=== PATIENT | female | born 1970 | race Caucasian/White ===

== ENCOUNTER 2022-09-30 10:30 | Emergency (ER) | payer OTHER, SELFPAY ==
[2022-09-30 10:35] VITALS: BP 137/95; PULSE 99; RESP 18; TEMP 36.9; O2SAT 100; BMI 32.9
--- NOTE | 2022-09-30 10:42 | ED.LOWEXI1 ---
HPI - Extremity Injury (Lower) General Chief Complaint: Extremity Injury, Lower Stated Complaint: LOWER EXTREMITY PAIN LEFT HIP Time Seen by Provider: 09/30/22 10:42 Source: patient and family Mode of arrival: walk-in Limitations: no limitations History of Present Illness HPI Narrative: Patient presents to emergency department complaining of left hip pain. Patient states she's had intermittent left hip pain for months. Patient states she injured her left hip in March. She saw Dr. Hyde in July. She's had x-rays done and did physical therapy for several months. On Monday she had an MRI done. She is here because the pain is getting worse since yesterday. She took Motrin 800 at 6 AM has not had any relief. She denies any paresthesias, or weakness. She is is having trouble when she sits on the toilet when she tries to get up. She has not seen the orthopedic surgeon regarding the results by the states that she is being treated as such she has a labrum tear. Patient is here mostly for pain control. She has an appointment with her doctor . She denies any urinary, bowel incontinence, retention. She denies any back pain. She denies any fever, chills, or swelling. Related Data Previous Rx's Medication Instructions Recorded hydrocodone 5 mg-acetaminophen 325 1 tab PO Q6H PRN pain 5 days #20 09/30/22 mg tablet tabs Allergies Allergy/AdvReac Type Severity Reaction Status Date / Time No Known Drug Allergies Allergy Verified 09/30/22 10:35 Review of Systems ROS Status of ROS 10 or more systems reviewed and unremarkable except as noted in history and below [facility] Social History Smoking status: Never smoker Exam Narrative Exam Narrative: Nurses notes and vital signs reviewed and patient is not hypoxic. General: Nontoxic, Well-appearing and in no apparent distress. Skin: Warm, dry, no pallor noted. No Rash Head: Normocephalic, atraumatic. Neck: Supple, non-tender. Eye: Pupils are equal, round and EOMI. No scleral icterus. Ears, Nose, Mouth, and Throat: TM clear, no posterior oropharynx erythema or nasal mucosal hypertrophy, uvula is mid-line Oral mucosa is moist Cardiovascular: Regular Rate and Rhythm without murmur, gallop or rub. Respiratory: No accessory muscle use or respiratory distress. Lungs are clear to auscultation, no wheezing, rales or rhonchi Chest Wall: no tenderness Back: No midline thoracic or lumbar vertebral tenderness. No CVA tenderness Musculoskeletal: normal ROM, no calf or popliteal tenderness, no lower extremity edema/swelling GI: Abdomen is soft, non-distended. Normal bowel sounds. No masses appreciated. No tenderness to palpation. No rebound, guarding, or rigidity noted. Neurological: A&O x4. No cranial nerve dysfunction observed. No truncal ataxia. Moves all extremities. Sensation intact. Psychiatric: Cooperative and interactive. Normal mood and affect. Constitutional Vital Signs, click to edit/add: Last Vital Signs Temp 98.5 F 09/30/22 10:35 Pulse 99 H 09/30/22 10:35 Resp 18 09/30/22 10:35 BP 137/95 H 09/30/22 10:35 Pulse Ox 100 09/30/22 10:35 O2 Del Method Room Air 09/30/22 10:35 Course Vital Signs Vital signs: Vital Signs Temperature 98.5 F 09/30/22 10:35 Pulse Rate 99 H 09/30/22 10:35 Respiratory Rate 18 09/30/22 10:35 Blood Pressure 137/95 H 09/30/22 10:35 Pulse Oximetry 100 09/30/22 10:35 Oxygen Delivery Method Room Air 09/30/22 10:35 Temperature 98.5 F 09/30/22 10:35 Pulse Rate 99 H 09/30/22 10:35 Respiratory Rate 18 09/30/22 10:35 Blood Pressure 137/95 H 09/30/22 10:35 Pulse Oximetry 100 09/30/22 10:35 Oxygen Delivery Method Room Air 09/30/22 10:35 MDM - Extremity Injury (Lower) MDM Narrative Medical decision making narrative: Patient was given one tablet of [place] by mouth in the emergency department. This helped her symptoms. Patient is advised follow-up with primary care doctor and orthopedist. At this time the patient is without objective evidence of an acute process requiring hospitalization or inpatient management. The patient has remained hemodynamically stable. No additional indication for emergent studies at this time. I answered all questions. Discussed discharge instructions including standard anticipatory guidance and what should prompt a return to the emergency department, including if they get worse are not getting better or develops any new or concerning symptoms. I've given them specific time frame in which to follow-up, and who to follow-up with. The patient demonstrates understanding. Patient is nontoxic and stable for discharge with outpatient follow-up. This note was created with the assistance of a speech recognition program. Although the intention is to generate documents that actually reflects the content of the visit, no guarantees can be provided that every mistake has been identified and corrected by editing. Discharge Plan Discharge Chief Complaint: Extremity Injury, Lower Clinical Impression: Arthralgia of left hip Patient Disposition: Home, Self-Care Time of Disposition Decision: 11:04 Condition: Good Mode of Transportation: Private Vehicle Prescriptions / Home Meds: New hydrocodone-acetaminophen 5-325 mg tablet 1 tab PO Q6H PRN (Reason: pain) 5 Days Qty: 20 0RF Instructions: Hip Pain (ED) Stand Alone Forms: Portal Instructions Referrals: Physician,Non-Staff, MD [Physician] - 1 week Discharge Date/Time: 09/30/22 11:22
== END 2022-09-30 11:22 | disposition home or self-care (01) ==
PROVIDERS: Emergency Provider Emergency Medicine; PCP Orthopaedic Surgery
DX: M25.552 Pain in left hip (principal)
CPT/HCPCS: 99283